=== PATIENT | female | born 1975 | race Asian ===

== ENCOUNTER 2016-06-22 03:14 | Emergency (ER) | payer OTHER ==
[~2016-06-22] VITALS: Ht 162.6 cm; Wt 78.6 kg
[~2016-06-22 03:14] MED LIST: CETI10CA PO; FLUT12AE10 IH; IPRA4AER IH; PRE20 PO; SUMA100T2 PO
[2016-06-22 03:16] VITALS: BP 147/92; PULSE 81; O2SAT 97
[2016-06-22 03:59] LABS: BASOPHILS % (AUTO) 0.4 % (0-3); EOSINOPHILS % (AUTO) 3.8 % (0-5); MONOCYTES % (AUTO) 6.4 % (4-12); Mean Corpuscular Hemoglobin 28.6 pg (27.0-35.0); Mean Corpuscular Volume 84.9 fL (81-100); NEUTROPHILS % (AUTO) 61.4 % (40-74); Platelet Count 293 bil/L (150-400)
[2016-06-22 04:11] LABS: Magnesium 2.2 mg/dL (1.6-2.6)
--- NOTE | 2016-06-22 04:12 | ED.REPORT ---
HPI-Abd Pain F Under 42 Date of Service June 22, 2016 ED Provider: Rick Lainez MD Patient is a 40-year-old female with history of asthma who presents to [facility] emergency department complaining of acute onset of right lower quadrant abdominal pain. Patient states she went to bed around 10 PM and woke up at midnight with making abdominal pain. She denies associated nausea, vomiting, chills, fever, dyspareunia, vaginal discharge. She report mild nasal congestion and rhinorrhea for the last couple weeks. She reports having a similar pain about 10 years ago when she was diagnosed with ovarian cyst. Patient reports last menstrual cycle about 2 weeks ago. She and her are trying to start a family. Patient reports she was unsuccessful in trying to conceive. Patient and her underwent extensive infertility workup that was so far negative. Nursing Notes Stated Complaint: RIGHT SIDE ABDOMINAL PAIN Chief Complaint: Female Abdominal Pain Nursing Notes Reviewed: Yes Allergies: Coded Allergies: aspirin (Verified Allergy, Severe, hives,rash, 06/22/16) nut - unspecified (Verified Allergy, Severe, Anaphylaxis, 06/22/16) Scheduled Cetirizine HCl (Zyrtec) 10 Mg Capsule 10 MG PO QAM Fluticasone Propionate (Flovent HFA 220 mcg) 12 Gm Aer.w.adap 2 PUFFS IH QAM Prednisone (PredniSONE) 20 Mg Tablet 20 MG PO DAILY Prednisone (PredniSONE) 20 Mg Tablet 60 MG PO DAILY Scheduled PRN Albuterol/Ipratropium (Combivent Respimat Inhal [place]) 120 Spr/4 Gm Inhaler 1 PUFF IH QID PRN PRN For Wheezing Sumatriptan Succinate (Sumatriptan Succinate) 100 Mg Tablet 100 MG PO DAILY PRN PRN Headache General Time Seen by MD: 03:50 Chief Complaint Abdominal pain Hx Obtained From: Patient Arrived By: Walk-in Sudden in Onset?: Yes Onset Occurred: 1 - 4 hours ago Context of Onset: Mid menstrual cycle Location: : RLQ Quality: Aching Radiation: : Does not radiate Severity: Current: No pain currently Severity: Maximum: Mild Status: Last NL menst cycle Sexual History / Control: Reports Pt is sexually active (trying to conceive) Recent Healthcare: No recent doctor visit Risk Factors Ectopic Risk Stratification Fertility treatments Risk factors reviewed CAD Risk Stratification No risk factors TAD Risk Stratification No risk factors Past Medical History Past Medical History Asthma Peanut allergies Jie-Wiedmann syndrome Past Surgical History airway surgery Family History noncontributory Reports: Coronary artery disease Smoking History Never Smoker Social History Alcohol Use: "Social" Drug Use: Denies drug use Other Social History: Good social support, , Local resident Occupation Works at [employer] Ambulatory Status Independent Review of Systems A comprehensive review of systems has been conducted with the patient and was found to be negative except what is mentioned in the history of present illness. Physical Exam Initial Vital Signs Vital Signs (First) Date Time Temp Pulse Resp B/P Pulse Ox O2 Delivery O2 Flow Rate FiO2 06/22/16 03:16 36.8 81 147/92 97 Room Air 06/22/16 06:03 16 Initial VS: Reviewed, Vital signs normal Head / Eyes: Atraumatic, Normocephalic, PERRL ENT: Mucous membranes moist, Conjunctiva normal, No scleral icterus Neck: Supple, Non-tender, Full range of motion Lymphatic: No lymphadenopathy Extremities: Vascular intact, Neuro intact, No swelling, No tenderness Skin: Warm, Dry, No cyanosis Neurologic: Alert, Oriented, Nonfocal Psychiatric: Mood/affect normal, Behavior normal, Normal thought content General/Constitutional: Awake, Alert, No acute distress, Well appearing, Well developed, Well nourished, Cooperative Respiratory / Chest: Breath sounds NL, No rales, No rhonchi, No wheezing Cardiovascular: Heart rate NL, Regular rhythm, No murmurs, Cap refill not delayed Abdomen: Atraumatic, Soft, Non-tender, No guarding, No rebound, BS normoactive , No distention, No hernia, No palpable mass, No pulsatile mass Back: Atraumatic, Non-tender Skin: No rash, Turgor NL Interpretation & Diagnostics Elevated white blood count 13.5 Unremarkable CMP Unremarkable UA Negative test Lab Results Interpretation Result Diagram: 06/22/16 0340 06/22/16 0340 Test 06/22/16 03:30 06/22/16 03:33 06/22/16 03:40 Hold Urine Received (Received) Urine Color Yellow (YELLOW) Urine Appearance Clear (CLEAR,HAZY) Urine pH 6.5 (5.0-8.0) Urine Specific [place] 1.010 (1.003-1.035) Urine Protein Negativemg/dL (NEG,TRACE) Urine Glucose (UA) Negativemg/dL (NEGATIVE) Urine Ketones Negativemg/dL (NEGATIVE) Urine Occult Blood Negative (NEGATIVE) Urine Nitrite Negative (NEGATIVE) Urine Bilirubin Negative (NEGATIVE) Urine Urobilinogen Normalmg/dL (NORMAL) Urine Leukocyte Esterase Negative (NEGATIVE) Urine RBC 0-2/hpf (0-2) Urine WBC 0-5/hpf (0-5) Urine Epithelial Cells Moderate/hpf (NONE-MOD) Urine Crystals None seen (NONE SEEN) Urine Bacteria Few/hpf (NONE-FEW) Urine Hyaline Casts None/lpf (NONE) Urine Granular Casts None seen (NONE SEEN) Urine Waxy Casts None seen (NONE SEEN) Urine Red Blood Cell Casts None seen (NONE SEEN) Urine White Blood Cell Casts None seen (NONE SEEN) Urine Mucus None seen (None Seen) Urine Trichomonas None seen (NONE SEEN) Urine Yeast None (NONE SEEN) Urine Culture Reflexed Not indicated White Blood Count 13.5th/mm3 (3.8-10.1) Red Blood Count 5.11mil/mm3 (3.90-5.20) Hemoglobin 14.6g/dL (12.0-15.6) Hematocrit 43.4% (35.0-46.0) Mean Corpuscular Volume 84.9fL (81-100) Mean Corpuscular Hemoglobin 28.6pg (27.0-35.0) Mean Corpuscular Hemoglobin Concent 33.6% (32.0-37.0) Red Cell Distribution Width 13.6% (12.3-15.4) Platelet Count 293bil/L (150-400) Neutrophils (%) (Auto) 61.4% (40-74) Lymphocytes (%) (Auto) 27.1% (14-46) Monocytes (%) (Auto) 6.4% (4-12) Eosinophils (%) (Auto) 3.8% (0-5) Basophils (%) (Auto) 0.4% (0-3) Hold Purple Top Tube Received (Received) Hold Blue Top Tube Received (Received) Sodium Level 136mEq/L (134-144) Potassium Level 4.2mEq/L (3.5-5.2) Chloride Level 98mEq/L (97-108) Carbon Dioxide Level 24mmol/L (18-29) Blood Urea Nitrogen 16mg/dL (6-20) Creatinine 0.52mg/dL (0.57-1.00) Estimat Glomerular Filtration Rate 189mL/min (>59) Glucose Level 106mg/dL (60-99) Calcium Level 9.2mg/dL (8.5-10.1) Magnesium Level 2.2mg/dL (1.6-2.6) Total Bilirubin 0.3mg/dL (0.0-1.2) Aspartate Amino Transf (AST/SGOT) 21U/L (0-50) Alanine Aminotransferase (ALT/SGPT) 23U/L (0-32) Alkaline Phosphatase 66U/L (25-150) Total Protein 8.0g/dL (6.4-8.4) Albumin 4.1g/dL (3.4-5.0) Lipase 32U/L (13-60) Hold Red Top Tube Received (Received) Hold [place] Top Tube Received (Received) Hold [place] Top Tube Received (Received) Lab Results Interpretation: Mildly elevated white blood count Re-Eval/Medical Decision Med Decision/Clinical Course In summary this is an 40-year-old female with history of asthma and ovarian cysts who presents to ED complaining of right lower quadrant abdominal pain for 3 hours. She denies fever, nausea or vomiting. Patient has been asymptomatic in the ED for the last two hours. The only abnormal lab result is WBC of 13.5. We discussed with the patient the need for further work. We recommended abdominal/pelvic ultrasound as an outpatient. Patient understands and agrees with the plan. She will follow up with her PCP within a week. Differential Diagnosis: Positive: Appendicitis, Endometriosis, Ovarian cyst Counseled Regarding: Diagnosis, Lab results, Need for follow-up, When/why to return to ED Discharge & Departure Primary Impression: Abdominal pain Abdominal location: right lower quadrant Qualified Code: R10.31 - Right lower quadrant pain Disposition: Home Discharge Condition Condition: Stable Patient Instructions: Acute Abdominal Pain (ED) Additional Instructions: Thank you for seeking care at the emergency room today. A definitive reason for your abdominal pain was not identified. The only abnormal blood work result was elevated white blood count that could be attributed to a viral infection . To rule out any abdominal/pelvic pathology, we recommend to follow-up with your primary care provider and have abdominal/pelvic ultrasound done. Please return to emergency room if your symptoms worsen. Thank you for letting us to partake in your care today. Referrals: OTHER,PHYSICIAN (PCP) 1 Week (Family) EDSupervising Provider for APC: Rick Lainez MD Attending Statment The patient was seen and examined together with Dr. Marquita Broderick and I agree with the history, exam and plan as outlined in the note above. Marquita Broderick DO June 22, 2016 04:12 Rick Lainez MD June 22, 2016 06:46
[2016-06-22 04:24] LABS: APPEARANCE,URINE CLEAR (CLEAR,HAZY); COLOR,URINE YELLOW (YELLOW); OCCULT BLOOD,URINE NEGATIVE (NEGATIVE); PH,URINE 6.5 (5.0-8.0); UROBILINOGEN,URINE NORMAL (NORMAL)
[2016-06-22 06:03] VITALS: BP 137/86; PULSE 75; RESP 16; O2SAT 98
== END 2016-06-22 06:04 | disposition home or self-care (01) ==
LOC: SED 03:14
DX: R10.31 Right lower quadrant pain (principal); J45.909 Unspecified asthma, uncomplicated; Z91.010 Allergy to peanuts; Z88.6 Allergy status to analgesic agent

== ENCOUNTER 2016-10-21 20:51 | Emergency (ER) | payer OTHER ==
[~2016-10-21] VITALS: Ht 162.6 cm; Wt 77.3 kg
[2016-10-21 20:59] VITALS: BP 157/111; RESP 16; O2SAT 97
--- NOTE | 2016-10-21 22:06 | ED.REPORT ---
HPI-Ear Pain/Problem/FB Date of Service Oct 21, 2016 ED Provider: Rick Lainez MD This is a 40-year-old female with history of asthma who presents to the emergency department for left-sided ear pain. The ear pain has been going on since yesterday morning. She describes it as a constant, throbbing in nature, currently 7 out of 10 in severity without any radiation. She denies any hearing loss, discharge, bleeding, visual changes, headaches, nausea, vomiting, fevers, chills, neck pain, chest pain, shortness of breath and abdominal pain. She mentioned she has not had an earache in over 20 years. She has tried Tylenol and an ice pack for the pain without any relief. Nursing Notes Stated Complaint: LEFT EAR PAIN Chief Complaint: ENT & Mouth Nursing Notes Reviewed: Yes Allergies: Coded Allergies: aspirin (Verified Allergy, Severe, hives,rash, 10/21/16) nut - unspecified (Verified Allergy, Severe, Anaphylaxis, 10/21/16) Scheduled Cetirizine HCl (Zyrtec) 10 Mg Capsule 10 MG PO QAM Fluticasone Propionate (Flovent HFA 220 mcg) 12 Gm Aer.w.adap 2 PUFFS IH QAM Prednisone (PredniSONE) 20 Mg Tablet 20 MG PO DAILY Prednisone (PredniSONE) 20 Mg Tablet 60 MG PO DAILY Scheduled PRN Albuterol/Ipratropium (Combivent Respimat Inhal [place]) 120 Spr/4 Gm Inhaler 1 PUFF IH QID PRN PRN For Wheezing Sumatriptan Succinate (Sumatriptan Succinate) 100 Mg Tablet 100 MG PO DAILY PRN PRN Headache General Time Seen by MD: 21:09 Chief Complaint Ear problem left Hx Obtained From: Patient Past Medical History Past Medical History Asthma Peanut allergies Jie-Wiedmann syndrome Past Surgical History airway surgery Family History noncontributory Reports: Coronary artery disease Smoking History Never Smoker Social History Alcohol Use: "Social" Drug Use: Denies drug use Other Social History: Good social support, , Local resident Occupation Works at [employer] Ambulatory Status Independent Review of Systems Basic Review of Systems Eyes: Vision NL, No discharge Respiratory: No shortness of breath, No cough Cardiovascular: No chest pain GI: No abdominal pain, No nausea, No vomiting Neurologic: NL mental status, No weakness, No numbness Psychiatric: Normal thought content Constitutional: Denies: Chills, Fever Ears / Nose / Throat: Reports: Earache left, Denies: Ear drainage bilateral, Ear ringing bilateral, Earache right, Hearing loss bilateral, Mouth pain, Nasal congestion, Sinus problem, Sore throat , Throat pain, Throat swelling Complete sys rev & neg: except as marked. Physical Exam Initial Vital Signs Vital Signs (First) Date Time Temp Pulse Resp B/P Pulse Ox O2 Delivery O2 Flow Rate FiO2 10/21/16 20:59 36.8 89 16 157/111 97 Room Air Initial VS: Reviewed, Vital signs abnormal Head / Eyes: Atraumatic, Normocephalic, PERRL Neck: Supple, Non-tender, Full range of motion Respiratory: Breath sounds normal, Clear to auscultation, No respiratory distress Cardiovascular: Regular rate & rhythm, Heart sounds normal Back: No CVA tenderness Lymphatic: No lymphadenopathy Extremities: Neuro intact, No swelling Skin: Warm, Dry, No cyanosis Neurologic: Alert, Oriented, Nonfocal Psychiatric: Mood/affect normal, Behavior normal, Normal thought content General/Constitutional: Awake, Alert, No acute distress, Well appearing, Cooperative, Not toxic appearing ENT: Pharynx NL, No peritonsillar abscess, No sinus tenderness, No facial swelling Left Ear / Mastoid: Positive: External canal red, Mastoid area tender Head / Eyes: Atraumatic, Normocephalic, PERRL, EOMI, Conjunctiva NL Patient has tender left sided mastoid and tender TMJ. No swelling or erythema noted. Neck: Atraumatic, Supple, No swelling, Thyroid NL, No tracheal deviation Respiratory / Chest: Breath sounds NL, Breath sounds = bilat, No respiratory distress Cardiovascular: Heart rate NL, Regular rhythm, Heart sounds NL Re-Eval/Medical Decision Med Decision/Clinical Course This is a 40-year-old female with history of asthma presented to the emergency department for constant left-sided ear pain ongoing since yesterday. Patient does not have any other associated symptoms including fever, chills, discharge, bleeding, hearing loss, visual changes, headaches. On exam she did have significant tenderness to the left mastoid and TMJ. There was also significant erythema noted within the left ear canal. Patient is afebrile and is nontoxic appearing. Her mastoid tenderness may be an early sign of acute mastoiditis. Given the mildness of her symptoms, surgeon was made to treat patient with full course of Augmentin as if she may have mastoiditis however it was sided she did not need a CT at this time she does not have any fevers and is nontoxic appearing. Patient should return to the emergency department if she starts to develop signs of systemic illness including fevers, chills, or if her ear symptoms start to worsen. Counseled Regarding: Diagnosis, Lab results, Need for follow-up, When/why to return to ED Discharge & Departure Primary Impression: Left otitis media Otitis media type: suppurative Chronicity: acute Recurrence: not specified as recurrent Spontaneous tympanic membrane rupture: without spontaneous rupture Qualified Code: H66.002 - Acute suppurative otitis media without spontaneous rupture of ear drum, left ear Disposition: Home Discharge Condition All VS Reviewed: Yes Condition: Stable Patient Instructions: Otitis Media (ED) Additional Instructions: The left ear is infected. The tenderness behind the ear on the mastoid bone may also indicate that there is early or mild mastoiditis. Full antibiotic and is important. Amoxicillin/clavulanate (Augmentin) 875 mg, one pill twice a day for 10 days, #20 dispensed. Tylenol and/or ibuprofen as needed for pain. Contact Dr. Lainez at [phone] between the hours of 9 PM and 6 AM for the next couple nights if he had any questions or concerns. Return to the emergency room or see your primary doctor if you worsen with increasing pain or fever. [facility] Attending Statement The patient was seen and examined together with Dr. Greyson Morales and I agree with the history, exam and plan as outlined in the note above. Greyson Morales DO Oct 21, 2016 21:46 Rick Lainez MD Oct 21, 2016 22:06
[2016-10-22] MEDS ORDERED: _Amoxicillin-Clavulanate 875-125 mg Tablet PO SCH (08:30)
== END 2016-10-21 22:16 | disposition home or self-care (01) ==
LOC: SED 20:51
DX: H66.002 Acute suppurative otitis media without spontaneous rupture of ear drum, left ear (principal); J45.909 Unspecified asthma, uncomplicated; Q87.3 Congenital malformation syndromes involving early overgrowth; Z98.890 Other specified postprocedural states; Z88.8 Allergy status to other drugs, medicaments and biological substances; Z91.018 Allergy to other foods

== ENCOUNTER 2016-11-04 15:08 | Emergency (ER) | payer OTHER ==
[~2016-11-04] VITALS: Ht 162.6 cm; Wt 77.3 kg
[2016-11-04 15:18] VITALS: BP 166/94; RESP 16; O2SAT 96
--- NOTE | 2016-11-04 16:24 | ED.REPORT ---
HPI-Ear Pain/Problem/FB Date of Service Nov 04, 2016 ED Provider: Doc,Ed MD History of Present Illness: seen 2 weeks ago for left ear pain. feels it is returning and also on the right now. Cleans ears with q-tips. primary care is [facility] 06/24 pain. Took all her antibiotics Nursing Notes Stated Complaint: SOB/SORE EARS Chief Complaint: ENT & Mouth Nursing Notes Reviewed: Yes Allergies: Coded Allergies: aspirin (Verified Allergy, Severe, hives,rash, 10/21/16) nut - unspecified (Verified Allergy, Severe, Anaphylaxis, 10/21/16) wool (Verified Allergy, Unknown, 11/04/16) rash Scheduled Cetirizine HCl (Zyrtec) 10 Mg Capsule 10 MG PO QAM Fluticasone Propionate (Flovent HFA 220 mcg) 12 Gm Aer.w.adap 2 PUFFS IH QAM Prednisone (PredniSONE) 20 Mg Tablet 20 MG PO DAILY Prednisone (PredniSONE) 20 Mg Tablet 60 MG PO DAILY Scheduled PRN Albuterol/Ipratropium (Combivent Respimat Inhal [place]) 120 Spr/4 Gm Inhaler 1 PUFF IH QID PRN PRN For Wheezing Sumatriptan Succinate (Sumatriptan Succinate) 100 Mg Tablet 100 MG PO DAILY PRN PRN Headache General Time Seen by MD: 16:24 Chief Complaint Ear problem right, Ear problem left Hx Obtained From: Patient Recent Healthcare: Recent doctor visit Past Medical History Past Medical History Asthma Peanut allergies Jie-Wiedmann syndrome Reports: Asthma Past Surgical History airway surgery Family History noncontributory Reports: Coronary artery disease Smoking History Never Smoker Social History Alcohol Use: "Social" Drug Use: Denies drug use Other Social History: Good social support, , Local resident Occupation Works at [employer] Ambulatory Status Independent Review of Systems Basic Review of Systems Eyes: Vision NL, No discharge : No dysuria, No frequency Neurologic: NL mental status, No weakness, No numbness Psychiatric: Normal thought content Physical Exam Initial Vital Signs Vital Signs (First) Date Time Temp Pulse Resp B/P Pulse Ox O2 Delivery O2 Flow Rate FiO2 11/04/16 15:18 37.0 81 16 166/94 96 Room Air Initial VS: Reviewed, Vital signs abnormal Head / Eyes: Atraumatic, Normocephalic, PERRL Neck: Supple, Non-tender, Full range of motion Respiratory: Breath sounds normal, Clear to auscultation, No respiratory distress Cardiovascular: Regular rate & rhythm, Heart sounds normal, Intact distal pulses Abdomen / GI: Soft, Non-tender, No guarding, No rebound, No distention Back: No CVA tenderness Lymphatic: No lymphadenopathy Extremities: Vascular intact, Neuro intact, No swelling, No tenderness Skin: Warm, Dry, No cyanosis Neurologic: Alert, Oriented, Nonfocal Psychiatric: Mood/affect normal, Behavior normal, Normal thought content General/Constitutional: Awake, Alert, No acute distress, Well appearing, Well developed, Well hydrated, Well nourished, Cooperative Left TM has fluid behind TM. Tm;s are pearly willis, both canals has mild swelling with erthyma Head / Eyes: Atraumatic, Normocephalic, PERRL Respiratory / Chest: Atraumatic, Breath sounds NL, Breath sounds = bilat Cardiovascular: Heart rate NL, Regular rhythm, Heart sounds NL Re-Eval/Medical Decision Med Decision/Clinical Course 40 year old presents to the ER for evualation of ear pain. Patient seen 2 weeks ago and given antibiotics. She reports some improvement but the pain is now returning and in both ears this time. Exam indicates externa infection. Education provided and medication and referral to ENT. No sign of ruptured TM of inner ear infection Discharge & Departure Primary Impression: Otitis externa Laterality: bilateral Chronicity: acute Disposition: Home Patient Instructions: Otitis Externa (ED) Additional Instructions: The left ear does show some fluid behind the TM but with recent antibiotic use, it is unlikely to be infection. Start a nasal steroid spray to see if that clears. Stop cleaning the ears with q-tips. Use ear drops 3 times a day to decrease the pain in the ears. Please call and schedule follow up with Dr. Franco in the next week or two. Referrals: [facility] (PCP) Jaoo Franco MD EDSupervising Provider for APC: Dale Moody MD copies to: Joao Franco MD; [facility] JossBridgett timez KERR Nov 04, 2016 16:24
[2016-11-04 17:08] VITALS: BP 144/87; PULSE 68; RESP 20; O2SAT 98
== END 2016-11-04 17:09 | disposition home or self-care (01) ==
LOC: SED 15:08
DX: H60.93 Unspecified otitis externa, bilateral (principal); J45.909 Unspecified asthma, uncomplicated; Z88.8 Allergy status to other drugs, medicaments and biological substances; Z91.010 Allergy to peanuts